=== PATIENT | male | born 1950 | race Caucasian/White ===

== ENCOUNTER 2019-03-08 10:48 | Observation (INO) | payer MEDICARE, BC ==
[2019-03-07 10:44] LABS: BASOPHILS # (AUTO) 0.1 (0.0-0.1); BASOPHILS % 0.5 % (0.0-1.0); EOSINOPHILS # (AUTO) 0.2 (0.0-0.4); EOSINOPHILS % 1.5 % (0.0-6.0); LYMPHOCYTES # (AUTO) 1.2 (1.0-3.2); LYMPHOCYTES % 10.6 % (18.0-39.1); MEAN CORPUSCULAR HEMOGLOBIN 36.7 pg (28-32); MEAN CORPUSCULAR HGB CONC 36.8 g/dL (31-35); MEAN CORPUSCULAR VOLUME 99.7 fL (81-99); MONOCYTES # (AUTO) 0.8 (0.2-0.8); MONOCYTES % 7.4 % (4.4-11.3); NEUTROPHILS # (AUTO) 8.6 (2.1-6.9); NEUTROPHILS % 79.5 % (38.7-80.0); PLATELET COUNT 181 x10e3/uL (140-360); RED BLOOD COUNT 3.81 x10e6/uL (4.3-5.7); RED CELL DISTRIBUTION WIDTH 11.5 % (11.7-14.4)
[2019-03-07 10:55] LABS: PROTHROMBIN TIME 13.7 seconds (11.9-14.5)
[2019-03-07 11:02] LABS: ANION GAP 11.9 mmol/L (8-16); CALCIUM 9.3 mg/dL (8.4-10.2); CREATININE, SERUM 1.53 mg/dL (0.72-1.25); POTASSIUM 3.9 mmol/L (3.5-5.1)
--- NOTE | 2019-03-07 11:05 | Diagnostic Imaging Report ---
EXAM: CHEST 2 VIEWS, PA and lateral DATE: 03/07/2019 Time stamp on exam: 10:36 AM INDICATION: Preoperative for urologic procedure COMPARISON: None FINDINGS: LINES/TUBES: None LUNGS: No consolidations or edema. PLEURA: No effusions or pneumothorax. HEART AND MEDIASTINUM: Normal size and contour. Tortuous thoracic aorta. BONES AND SOFT TISSUES: No acute findings. Mild degenerative changes of the spine. IMPRESSION: No acute thoracic abnormality. Signed by: Dr. Eloy Arango DO on 03/07/2019 11:02 AM
--- NOTE | 2019-03-07 13:35 | Diagnostic Imaging Report ---
Abdomen, 2 views. History: Stones. Findings: The intestinal gas pattern is nonobstructive. A 6 mm stone overlies the upper pole of the right kidney. There is also a 6 mm stone in the left paraspinous region situated between the transverse processes of L3 and L4. Multiple pelvic calcifications likely are phleboliths. There no masses. The osseous structures are intact. IMPRESSION: Right renal stone and left ureteral stone. Signed by: Dr. Eloy Arango DO on 03/07/2019 1:32 PM
[~2019-03-08] VITALS: Ht 172.7 cm; Wt 108.9 kg
[~2019-03-08 10:48] MED LIST: AMLODIPINE BESY10 MG PO; CIPRO500 MG PO; FLOMAX0.4 MG PO; HYDROCODONE PO; KETOROLAC PO; METOPROLOL SUCC50 MG PO; VASOTEC10 M1 PO
--- OUTSIDE RECORDS SUMMARY | 2019-03-08 11:01 | XMS REPORT ---
Author Author [facility] Address Unknown Phone Unavailable Care Team Providers Care Dancing Instructor Name Role Phone SANIYA FRYE Unavailable Unavailable Problems This patient has no known problems. Allergies, Adverse Reactions, Alerts This patient has no known allergies or adverse reactions. Medications This patient has no known medications. Results Test Description Test Time Test Comments Text Results Atomic Results Result Comments ABDOMEN-1VIEW (KU) 2019-03-07 13:29:00 [place] [id number] Patient Name: SVETLANA CRANDALL MR #: [id number] : 1950 Age/Sex: 68/M Req #: [id number] Adm Physician: Ordered by: SANIYA FRYE MD Report #: [id number] Location: OR Room/Bed: Procedure: [id number] DX/ABDOMEN-1VIEW ([facility]) Exam Date: 03/07/19 Exam Time: 1010 REPORT STATUS: Signed Abdomen, 2 views. History: Stones. Findings: The intestinal gas pattern is nonobstructive. A 6 mm stone overlies the upper pole of the right kidney. There is also a 6 mm stone in the left paraspinous region situated between the transverse processes of L3 and L4. Multiple pelvic calcifications likely are phleboliths. There no masses. The osseous structures are intact. IMPRESSION: Right renal stone and left ureteral stone. Signed by: Dr. Hillary Griffiths DO on 03/07/2019 1:32 PM Dictated By: HILLARY GRIFFITHS DO 31 Transcribed By: AMY on 03/07/191331 COPY TO: SANIYA FRYE MD CHEST 2 VIEWS 2019-03-07 11:00:00 [place] [id number] Patient Name: SVETLANA CRANDALL MR #: [id number] : 1950 Age/Sex: 68/M Req #: [id number] Adm Physician: Ordered by: SANIYA FRYE MD Report #: [id number] Location: OR Room/Bed: Procedure: [id number] DX/CHEST 2 VIEWS Exam Date: 03/07/19 Exam Time: 1010 REPORT STATUS: Signed EXAM: CHEST 2 VIEWS, PA and lateral DATE: 03/07/2019 Time stamp on exam: 10:36 AM INDICATION: Preoperative for urologic procedure COMPARISON: None FINDINGS: LINES/TUBES: None LUNGS: No consolidations or edema. PLEURA: No effusions or pneumothorax. HEART AND MEDIASTINUM: Normal size and contour. Tortuous thoracic aorta. BONES AND SOFT TISSUES: No acute findings. Mild degenerative changes of the spine. IMPRESSION: No acute thoracic abnormality. Signed by: Dr. Hillary Griffiths DO on 03/07/2019 11:02 AM Dictated By: HILLARY GRIFFITHS DO 01 Transcribed By: AMY on 03/07/191101 COPY TO: SANIYA FRYE MD
--- OUTSIDE RECORDS SUMMARY | 2019-03-08 11:01 | XMS REPORT | Clinical Summary ---
Author Author [facility] Address Unknown Phone Unavailable Care Team Providers Care Slitting Machine Operator Name Role Phone Asked, No Pcp PCP Unavailable Allergies No Known Allergies Medications End Date Status Medication Sig Dispensed Refills Start Date Active enalapril (VASOTEC) 20 MG Take 20 mg by 0 tablet mouth daily. Active metoprolol succinate XL Take 150 mg 0 (TOPROL-XL) 200 mg 24 hr by mouth tablet daily. 05/15/2018 Discontinued sodium,potassium,mag Please use as 2 Bottle 0 sulfates (SUPREP BOWEL directed 8 PREP KIT) 17.5-3.13-1.6 gram recon soln Active Problems Not on file Encounters Care Team Description Date Type Specialty Venkatesh Giles MD COLONOSCOPY 05/16/2018 Surgery Gastroenterology James MD 05/16/2018 Anesthesia Gastroenterology Event Venkatesh Giles MD 05/16/2018 Hospital Gastroenterology Encounter Venkatesh Giles MD Diverticulosis of large intestine without hemorrhage (Primary Dx); Hemochromatosis, unspecified hemochromatosis type; Umbilical hernia without obstruction and without gangrene; History of colon polyps 03/29/2018 Office Visit Gastroenterology Luz Marina Adams LPN 03/29/2018 Telephone Gastroenterology after 03/07/2018 Family History Medical History Relation Name Comments Brain cancer Father Lung cancer Father No Known Problems Mother No Known Problems Sister Relation Name Status Comments Father Mother Sister Alive Social History Date Tobacco Use Types Packs/Day Years Used Light Tobacco Smoker Cigars 4 Smokeless Tobacco: Never Used Comments: Occ Alcohol Use Drinks/Week oz/Week Comments No Sex Assigned at Date Recorded Not on file Industry Job Start Date Occupation Not on file Not on file Not on file Travel End Travel History Travel Start No recent travel history available. Last Filed Vital Signs Time Taken Vital Sign Reading 05/16/2018 8:45 AM CDT Blood Pressure 152/78 05/16/2018 8:45 AM CDT Pulse 56 05/16/2018 8:15 AM CDT Temperature 36.2 C (97.2 F) 05/16/2018 8:45 AM CDT Respiratory Rate 18 05/16/2018 8:45 AM CDT Oxygen Saturation 94% - Inhaled Oxygen - Concentration 05/16/2018 7:04 AM CDT Weight 102 kg (225 lb) 05/16/2018 7:04 AM CDT Height 177.8 cm (5' 10") 05/16/2018 7:04 AM CDT Body Mass Index 32.28 Plan of Treatment Health Maintenance Due Date Last Done Comments SHINGLES VACCINES (#1) 1998 65+ PNEUMOCOCCAL VACCINE 2013 (1 of 2 - PCV13) PNEUMOCOCCAL 2013 POLYSACCHARIDE VACCINE AGE 65 AND OVER INFLUENZA VACCINE 05/16/2019 COLON CANCER SCREENING 06/07/2027 06/07/2017, 06/07/2017, 05/29/2017 Procedures Comments Procedure Name Priority Date/Time Associated Diagnosis COLONOSCOPY 05/16/2018 Hx of colonic polyps 8:00 AM CDT after 03/07/2018 Results Not on fileafter 03/07/2018 Insurance Type Payer Benefit Subscriber ID Effective Phone Address Plan / Dates Group Medicare MEDICARE MEDICARE xxxxxxxxxx 2011-P HARISH, PART A AND resent [place] B Indemnity BCBS BCBS xxxxxxxxxxxx 2013-P PAR/TRAD resent PLAN Advance Directives Patient has advance care planning documents on file. For more information, jaclyn e contact: Harish Batista [address] [facility] [place] [address]
[2019-03-08] MEDS ORDERED: TYLENOL WITH C1 EACH PO (11:33)
[2019-03-08] MEDS ORDERED: FENTANYL CITRATE/PF 100MCG/2 ML INJ ONE (11:41)
[2019-03-08] MEDS ORDERED: IOPAMIDOL 610MG/1ML 300 MG/ML VIAL IV ONE (13:12)
[2019-03-08] MEDS ORDERED: PROPOFOL IV EMULSION 10 MG/ML 20 ML VIAL ONE (15:08)
[2019-03-08] MEDS ORDERED: CEFOXITIN SOD 1 GM VIAL ONE (15:08)
[2019-03-08] MEDS ORDERED: SEVOFLURANE INHAL SOLN 250 ML PEN BTL ONE (15:08)
[2019-03-08] MEDS ORDERED: ONDANSETRON HCL INJ 2MG/ML 2ML 2 MG/ML VIAL ONE (15:08)
[2019-03-08] MEDS ORDERED: LIDOCAINE HCL 2% LOCAL INJ 5 ML SDV VIAL INJ ONE (15:08)
[2019-03-08] MEDS ORDERED: DEXAMETHASONE SOD PHOS INJ 4 MG/ML VIAL ONE (15:08)
[2019-03-08] MEDS ORDERED: MORPHINE SULFATE INJ 4 MG/ML INJ 1ML IV PRN (17:45)
--- OUTSIDE RECORDS SUMMARY | 2019-03-08 17:54 | XMS REPORT | Clinical Summary ---
Author Author [facility] Address Unknown Phone Unavailable Care Team Providers Care Custodial Maintenance Worker Name Role Phone Asked, No Pcp PCP [...] more information, jaclyn e contact: Harish Batista [address] [place] [address]
--- NOTE | 2019-03-08 18:30 | NUR ---
RECEIVED TO RM AAOX3 NO DISTRESS NOTED, IVF INFUSING TO R HAND 20G NO SS OF INFILTRATION NOTED, PT DTV URINAL AT BEDSIDE, UPDATED ON POC, ORIENTED TO RM, CALL LIGHT IN REACH WILL CONTINUE OT MONITOR
[2019-03-08 18:39] VITALS: BP 145/72
[2019-03-08 20:00] VITALS: BP 128/67
[2019-03-08] MEDS: HYDROCODONE/APAP 7.5MG-325MG 1 EA TAB PO PRN (20:00)
[2019-03-08] MEDS: CEFOXITIN 1GM/ D5W 50ML 50 ML IV SCH (20:11)
--- NOTE | 2019-03-08 20:39 | NUR ---
spoke to Dr. Benitez to clarify medication orders. Patient stated he takes metoprolol 200mg daily. paitents medication was ordered for 20mg daily. Dr. Benitez made aware of this discrepancy. He ordered 100mg daily.
[2019-03-08 21:00] VITALS: BP 128/67
[2019-03-08] MEDS: SODIUM CHLORIDE 0.9% 1000ML 1,000 ML IV SCH (21:10)
[2019-03-09] VITALS: BP 123/63
--- NOTE | 2019-03-09 00:07 | Operative Report ---
DATE OF PROCEDURE: 03/08/2019 SURGEON: Jose Maria Ayon MD PREOPERATIVE DIAGNOSES: Left ureteric calculus and left hydronephrosis. POSTOPERATIVE DIAGNOSES: Left ureteric calculus, left hydronephrosis, left ureter strictures. OPERATIONS PERFORMED: Left ureteroscopy with holmium laser lithotripsy and insertion of left 7-Nigerian 28 cm double pigtail indwelling ureter stent. COMPLICATIONS: The patient had a broken guidewire and a broken tip had to be removed. HISTORY OF PRESENT ILLNESS: This patient is a 68-year-old white male with a long history of kidney stones. The patient had developed severe left-sided flank pains. A CT scan on March 05, 2019, revealed a 6 mm stone in the proximal left ureter causing the left hydronephrosis. There are multiple tiny nonobstructing stones seen bilaterally. For further details, please refer to the history and physical. PROCEDURE IN DETAIL: The procedure was done in the following fashion. The patient first had a preliminary flat plate of the abdomen obtained preoperatively. This revealed evidence of about a 6 to 7 mm stone in the proximal left ureter about the level of L4 and I really could not see any other stones on the flat plate of the abdomen. The patient was taken to the operating room, placed under general anesthesia and dressed with Hibiclens in lithotomy position in the usual fashion. The 21-Nigerian cystoscope was initially given to me with the 30 degree oblique lens. No urethral strictures were encountered. The sphincter and verumontanum were intact. The prostate was estimated about 40 g. I saw actually efflux from both ureteral orifices. There were no bladder tumors or bladder stones were identified. The bladder was mildly to moderately trabeculated. I first used a 6-Nigerian open-ended catheter to insert a guidewire into the left ureter and I then advanced the catheter over the guidewire and with the guidewire. A retrograde pyelogram was obtained, which confirmed that the suspicious calcification I saw at the beginning of the case on fluoroscopy was in fact a stone, but after I shot retrograde, I could no longer see the stone at all. There was evidence of left-sided hydronephrosis. I then inserted the SureGlide guidewire through the 5-Nigerian access catheter up into the kidney. My next step was to pass a 10-Nigerian double lumen introducer over the guidewire and then passed a SureGlide guidewire through the open lumen. This gave me two guidewires going up into the kidney and I could not see the stone at this point in time. My next step was to remove the 10-Nigerian double lumen introducer, leaving both guidewires going up to the kidney. I then removed the telescope and then proceeded to try and pass the long semi-rigid ureteroscope over the SureGlide guidewire and I encountered several ureteral strictures along the way, but I could not get up high enough to find a stone. Therefore, the semi-rigid ureteroscope was removed and I then passed a long flexible ureteroscopy sheath over the SureGlide guidewire. I was then with great difficulty able to advance the flexible cystoscope beyond several additional ureteral strictures that were encountered as I look my way up the ureter and I found the stone actually in a left upper pole renal calyx and was about 6 to 7 mm in size. The SureGlide guidewire was removed at this point in time, and I could see that the Amplatz Super Stiff was coiled very near the stone. The stone was then fragmented using the 275 micron holmium laser. The boiler control technician left and did not give me the numbers, but I used 8 hertz and about 0.8 joules and slowly fragmented the stone into multiple tiny pieces. After the stone was dusted, I looked at the fluoroscopy images and it became apparent to me that the Amplatz Super Stiff guidewire had broken and I could see that one end was coiled up inside the upper pole calyx and the other end was broken, but still connected to the outside of the patient. At this point in time, I tried to grab the broken piece which was coiled up using a flexible 3-prong grasping forceps and I was able to pull it with multiple attempts slowly down the kidney and were kept being coiled up and bent in half and I would grab it and it would fall out and I would grab it and it would fall out, but I was slowly get it to move down the ureter. Then it became stuck in the mid ureter and I then had made several attempts to try and get it with the semirigid ureteroscope, which were unsuccessful and I made additional attempts to get it with a flexible ureteroscope and ultimately I got the curled up end of the distal Amplatz Super Stiff guidewire to straighten out. Once I had this piece straightened out in the mid ureter, I could see it adjacent to the Amplatz Super Stiff safety guidewire. I was unable to grab this with a stone basket and remove it and so now I still had the intact end of the Amplatz Super Stiff going back up into the kidney. I reinserted the 10-Nigerian double lumen introducer and obtained a retrograde pyelogram through the open lumen and this showed no evidence of extravasation. I then reinserted a SureGlide guidewire and removed the 10-Nigerian double lumen introducer and passed the cystoscope sheath over the SureGlide guidewire. I then passed the telescope over the SureGlide guidewire. I then passed a 7-Nigerian 28 cm double pigtail indwelling ureter stent over the SureGlide guidewire using a metal tip pusher. I then removed the Amplatz Super Stiff safety guidewire. The bladder was emptied and cystoscope withdrawn. At the end of procedure, you can see there was no evidence of extravasation and that the broken piece of the Amplatz Super Stiff guidewire had been removed and no parts remained. The broken end of the Amplatz Super Stiff was sent to the pathology department for identification. The patient tolerated procedure well and left the operating good condition, but in view that he spent a prolonged period of time in the stirru and under general anesthesia, I will watch overnight because he is at high risk for developing either a pulmonary embolism or going into acute tubular necrosis given the prolonged anesthetic and being in the lithotomy position for so long. Dr. Joel Benitez has been consulted for internal medicine consultation. So, he ended up having a stone pulverized with the holmium laser and the broken piece of the Amplatz Super Stiff guidewire removed and he left the operating good condition with a 7-Nigerian 28 cm double pigtail indwelling ureter stent and no evidence of extravasation. Jose Maria Ayon MD OMAR/MODL /[id number]
[2019-03-09] MEDS: CEFOXITIN 1GM/ D5W 50ML 50 ML IV SCH ×3 (01:27→12:00)
[2019-03-09] MEDS: HYDROCODONE/APAP 7.5MG-325MG 1 EA TAB PO PRN ×2 (02:07→08:58)
[2019-03-09] MEDS: SODIUM CHLORIDE 0.9% 1000ML 1,000 ML IV SCH ×2 (02:52→07:16)
[2019-03-09 04:00] VITALS: BP 147/69
[2019-03-09 06:41] LABS: ANION GAP 11.3 mmol/L (8-16); BLOOD UREA NITROGEN 19 mg/dL (7-26); BUN/CREATININE RATIO 21 (6-25); CALCIUM 8.6 mg/dL (8.4-10.2); CARBON DIOXIDE 23 mmol/L (22-29); CHLORIDE 107 mmol/L (98-107); CREATININE, SERUM 0.91 mg/dL (0.72-1.25); EST GLOMERULAR FILTRATION RATE > 60 ML/MIN (60-); GLUCOSE 130 mg/dL (74-118); POTASSIUM 4.3 mmol/L (3.5-5.1); SODIUM 137 mmol/L (136-145)
--- NOTE | 2019-03-09 07:00 | NUR ---
bedside rounds complete no distress noted, updated on poc voiced understanding, ivf infusing to r hand 20g no ss of infiltration noted, denies pain at this time, call light in reach will continue ot monitor
[2019-03-09 08:19] VITALS: BP 129/66
[2019-03-09 08:47] VITALS: BP 129/66
[2019-03-09] MEDS ORDERED: METOPROLOL SUCCINATE 50 MG TAB XL PO SCH ×2 (09:00)
[2019-03-09] MEDS ORDERED: TAMSULOSIN HCL 0.4 MG CAP PO SCH (09:00)
[2019-03-09] MEDS ORDERED: ENALAPRIL MALEATE 10 MG TAB PO SCH (09:00)
[2019-03-09] MEDS ORDERED: DOCUSATE SODIUM 100 MG CAP PO SCH (09:00)
[2019-03-09] MEDS ORDERED: AMLODIPINE BESYLATE 10 MG TAB PO SCH (09:00)
[2019-03-09] MEDS ORDERED: MACROBID 100 M100 MG PO (11:52)
[2019-03-09] MEDS ORDERED: KETOROLAC TROME10 MG PO (11:58)
[2019-03-09] MEDS ORDERED: VESICARE5 MG PO (11:58)
--- NOTE | 2019-03-09 12:58 | NUR ---
Medical consultation: Requesting physician: reason for consult: medical consultation cc: left flank juan luis HPI: 68yoM, admitted for left ureterolithiasis and mild left hydronephrosis. Underwent ureteroscopy with lithotripsy and stone extraction, stent placement. Pain was 10/10, now 2/10. PMH: BPH, elevated PSA, ureteral stone, HTN, Obesity PShx: left ureteroscopy with stent placement Allergies; see emr FH/SH: ; no illicits/etoh/cigs meds see MAR ROS: no f/c/s/N/V/D/QUISPE/cp/sob v/s; revd PE nad anicteric ns1s2 mod bs soft nt nd no e/t a&ox3; haider skin dry n. affect labs/meds; revd A/P; Left ureterolithiasis - s/p ureteroscopy with lithotripsy and stone extraction, stent placement Left hydronephrosis - mild Flank pain- improving. SANG- rec'd fluids; resolving HTN- home med BPH- flomax Obesity BMI 36.5- f/u PCP for mgmt; caloric restriction important. Elevated PSA- cont f/u with [facility]: scd dispo: d/c planning; doing well; f/u with PCP for DM mgmt and for further urinary stone mgmt. Joel Benitez MD, PhD.
[2019-03-09 13:26] VITALS: BP 141/71
--- NOTE | 2019-03-09 13:29 | Progress Note ---
DATE: 03/09/2019 Discharge Progress Note. The patient is now 1 day status post ureteroscopy with holmium laser lithotripsy. The patient's procedure was complicated by having a guidewire break and it took me 2 hours to fish the guidewire out of his ureter, but at the end the procedure, he left the operating room with a stent in good position and no evidence of ureteral extravasation. The patient was monitored overnight because of the prolonged anesthesia. This morning, the patient states he feels good and Toradol as all he feels he needs for pain. He does have urgency and frequency. He states he feels well enough to go home. My plan at this time is to discharge the patient if his electrolytes this morning were normal. I was initially concerned that he might develop acute tubular necrosis, but this morning his BUN was 19 and creatinine 0.91, therefore the patient is being discharged on Macrobid 100 mg p.o. twice daily #60, on Toradol 10 mg one p.o. q.6 hours p.r.n. pain #28, and on VESIcare 10 mg one p.o. daily #30. He will have return appointment to see me next week for making arrangements to get his stent removed. He states he would rather have the stent removed under general anesthesia under local in the office. Jose Maria Ayon MD SRA/MODL /[id number]
== END 2019-03-09 14:27 | disposition home or self-care (01) ==
LOC: OR 10:48 → MED/SURG 17:51
PROVIDERS: ADMIT Urology; ATTEND Urology
DX: N13.2 Hydronephrosis with renal and ureteral calculous obstruction (principal); Z01.810 Encounter for preprocedural cardiovascular examination; Z01.812 Encounter for preprocedural laboratory examination; Z01.811 Encounter for preprocedural respiratory examination; Z80.1 Family history of malignant neoplasm of trachea, bronchus and lung; Z80.8 Family history of malignant neoplasm of other organs or systems; Z84.1 Family history of disorders of kidney and ureter; Z82.49 Family history of ischemic heart disease and other diseases of the circulatory system; I10 Essential (primary) hypertension; E83.119 Hemochromatosis, unspecified; K42.9 Umbilical hernia without obstruction or gangrene; M19.90 Unspecified osteoarthritis, unspecified site; R97.20 Elevated prostate specific antigen [PSA]; N40.0 Benign prostatic hyperplasia without lower urinary tract symptoms; Z87.442 Personal history of urinary calculi; K64.4 Residual hemorrhoidal skin tags; R19.5 Other fecal abnormalities; G47.33 Obstructive sleep apnea (adult) (pediatric)
CPT/HCPCS: 36415 ×2; 52356; 71046; 74018; 74420; 80048 ×2; 85025; 85610; 88300; 93005; C1766; C2617; G0378 ×2; J0694; J1100; J2001; J2270; J2405; J2704; J7030 ×2; Q9967

== ENCOUNTER → 2019-03-22 | Day surgery (SDC) | payer MEDICARE, BC ==
[~2019-03-22] MED LIST changes: +CEFOXITIN 1GM/ D5W 50ML 50 ML IV ONE; +IOPAMIDOL 610MG/1ML 300 MG/ML VIAL IV ONE; +KETOROLAC TROME10 MG PO; +LIDOCAINE HCL 2% LOCAL INJ 5 ML SDV VIAL INJ ONE; +MACROBID 100 M100 MG PO; +PROPOFOL IV EMULSION 10 MG/ML 20 ML VIAL ONE; +TYLENOL WITH C1 EACH PO; +VESICARE5 MG PO
[2019-03-22 13:05] VITALS: BP 148/73
--- NOTE | 2019-03-22 19:48 | Operative Report ---
DATE OF PROCEDURE: 03/22/2019 SURGEON: Jose Maria Ayon MD PREOPERATIVE DIAGNOSIS: Left ureter calculus. POSTOPERATIVE DIAGNOSIS: Left ureter calculus. OPERATION PERFORMED: Cystoscopy and removal of left ureter stent. ANESTHESIA: General. INDICATIONS: This patient is a 68-year-old white male with a long history of kidney stone disease. Several weeks ago, he had a left ureteroscopy with holmium laser lithotripsy. The procedure was complicated by the fact that numerous ureteral strictures were encountered from his previous stone disease, also guide wire broke in the middle of the operation during the holmium laser lithotripsy and had to be removed as well. The patient left the operating room in good condition with a stent. There was no extravasation at that time. For further details, please refer to the history and physical. Procedure was done in the following fashion. PROCEDURE IN DETAIL: The patient was taken to the operating room and placed under general anesthesia and dressed with Hibiclens in lithotomy position in the usual fashion. A preliminary scan of the abdomen revealed the left ureter stent to be in good position. No stones were identified. The 25-Hungarian Olympus cystoscope was inserted with the visual attachment. No urethral strictures were encountered. The sphincter and verumontanum were intact. The prostate was estimated about 40 g. The stent was seen coming out of the left ureteral orifice. The distal end of the stent was grabbed using a flexible grasping forceps and then the flexible grasping forceps and cystoscope withdrawn together pulling the stent out completely. A final scan of the abdomen revealed the stent to be completely removed and no stones were identified. The cystoscope was reinserted into the bladder and then removed. The patient tolerated the procedure well, left the operating room in good condition. He will go home on Macrobid 100 mg p.o. twice daily #20. He will have return appointment to see me again in 2 weeks. Jose Maria Ayon MD OMAR/MODL /[id number]
== END | disposition home or self-care (01) ==
LOC: OR 09:58
PROVIDERS: ATTEND Urology
DX: N20.2 Calculus of kidney with calculus of ureter (principal); Z46.6 Encounter for fitting and adjustment of urinary device; N13.5 Crossing vessel and stricture of ureter without hydronephrosis; R97.20 Elevated prostate specific antigen [PSA]; N40.0 Benign prostatic hyperplasia without lower urinary tract symptoms; K64.4 Residual hemorrhoidal skin tags; G47.33 Obstructive sleep apnea (adult) (pediatric); I10 Essential (primary) hypertension; R06.09 Other forms of dyspnea; E83.119 Hemochromatosis, unspecified; R19.5 Other fecal abnormalities; K42.9 Umbilical hernia without obstruction or gangrene; M19.90 Unspecified osteoarthritis, unspecified site; M54.2 Cervicalgia; M54.9 Dorsalgia, unspecified; Z72.0 Tobacco use; Z96.653 Presence of artificial knee joint, bilateral; Z84.1 Family history of disorders of kidney and ureter
CPT/HCPCS: 52310; 74420; 88300; J2001; J2704; Q9967